=== PATIENT | female | born 1945 | race Two or more races ===

== ENCOUNTER 2021-09-11 05:51 | Day surgery (SDC) | payer OTHER | END 2021-09-11 10:55 | disposition home or self-care (01) | LOC: AMB-ENDOS 05:51 | PROVIDERS: ATTEND Surgery | DX: K62.89 Other specified diseases of anus and rectum (principal); K64.8 Other hemorrhoids; Z20.822 Contact with and (suspected) exposure to COVID-19 ==

== ENCOUNTER 2021-10-22 10:45 | Inpatient (IN) | payer OTHER ==
[~2021-10-22] VITALS: Ht 160 cm; Wt 63.5 kg
[2021-10-22] MEDS ORDERED: SIMVASTAT PO (12:35)
[2021-10-22] MEDS ORDERED: GLUMETZA500 MG PO (12:35)
[2021-10-22] MEDS ORDERED: GLIPIZIDE XL5 MG PO (12:35)
[2021-10-22] MEDS ORDERED: ZESTRIL10 M1 PO (12:36)
[2021-11-14] MEDS ORDERED: SIMVASTATIN20 MG PO (07:50)
== END 2021-11-18 18:56 | disposition home or self-care (01) | DRG 329 ==
LOC: SURH 10-24 10:45 → O/R 11-14 06:00 → SURH 11-14 06:00
PROVIDERS: Urology; ADMIT Surgery; ATTEND Surgery
PROC: 0DNW4ZZ Release Peritoneum, Percutaneous Endoscopic Approach (ICD-10-PCS; 2021-11-14)
PROC: 0TQB0ZZ Repair Bladder, Open Approach (ICD-10-PCS; 2021-11-14)
PROC: 0DJD8ZZ Inspection of Lower Intestinal Tract, Via Natural or Artificial Opening Endoscopic (ICD-10-PCS; 2021-11-14)
PROC: 0DTN4ZZ Resection of Sigmoid Colon, Percutaneous Endoscopic Approach (ICD-10-PCS; principal; 2021-11-14 11:45)
PROC: 0DBP4ZZ Excision of Rectum, Percutaneous Endoscopic Approach (ICD-10-PCS; 2021-11-14 11:45)
DX: K57.20 Diverticulitis of large intestine with perforation and abscess without bleeding (principal); K65.1 Peritoneal abscess; N82.4 Other female intestinal-genital tract fistulae; K62.5 Hemorrhage of anus and rectum; N99.72 Accidental puncture and laceration of a genitourinary system organ or structure during other procedure; N99.4 Postprocedural pelvic peritoneal adhesions; R19.4 Change in bowel habit; R10.32 Left lower quadrant pain; K64.8 Other hemorrhoids; N73.6 Female pelvic peritoneal adhesions (postinfective); Z20.822 Contact with and (suspected) exposure to COVID-19